=== PATIENT | female | born 1990 | race American Indian/Alaskan Native ===

== ENCOUNTER 2018-08-18 10:21 | Emergency (ER) | payer MEDICAID ==
[2018-08-18 10:30] VITALS: BP 117/78
[2018-08-18] MEDS ORDERED: TYLENOL PO ONE (11:32)
[2018-08-18] MEDS ORDERED: TYLENOL ONE (11:33)
== END 2018-08-18 13:48 | disposition left against medical advice (07) ==
LOC: ED 10:21
DX: M54.89 Other dorsalgia (principal); Z53.21 Procedure and treatment not carried out due to patient leaving prior to being seen by health care provider

== ENCOUNTER 2018-09-29 10:18 | Emergency (ER) | payer MEDICAID ==
[2018-09-27 11:57] LABS: Basophils % (Auto) 0.5 % (0.0-1.8); Eosinophils # (Auto) 0.1 K/mm3 (0.0-0.4); Eosinophils % (Auto) 1.7 % (0.0-4.3); Hematocrit 35.7 % (30.3-42.9); Hemoglobin 12.3 gm/dl (10.1-14.3); Lymphocytes # (Auto) 1.8 K/mm3 (1.2-5.4); Lymphocytes % (Auto) 26.8 % (13.4-35.0); Mean Corpuscular HGB Conc 35 % (30-34); Mean Corpuscular Volume 95 fl (79-97); Monocytes # (Auto) 0.4 K/mm3 (0.0-0.8); Monocytes % (Auto) 5.8 % (0.0-7.3); Platelet Count 241 K/mm3 (140-440); Red Blood Count 3.74 M/mm3 (3.65-5.03); Red Cell Distribution Width 13.6 % (13.2-15.2)
--- NOTE | 2018-09-27 12:14 | Anesthesia Consultation ---
Anesthesia Consult and Med Hx Date of service: 09/29/18 - Airway Anesthetic Teeth Evaluation: Good ROM Head & Neck: Adequate Mental/Hyoid Distance: Adequate Mallampati Class: Class II Intubation Access Assessment: Good - Pre-Operative Health Status ASA Pre-Surgery Classification: ASA2 Proposed Anesthetic Plan: General Nerve Block: TAP - Pulmonary Hx Smoking: Yes (STARTED AGE 16; 1/2 PPD) Hx Asthma: No COPD: No Hx Pneumonia: No - Central Nervous System Hx Neuromuscular Disorder: Yes Hx Seizures: Yes (LAST ONE 04/2018; STOPPED DEPAKOTE WHEN INVEGA STARTED 09/21/18) Hx Psychiatric Problems: Yes (Bipolar, anxiety, depression, schizophrenia) - Endocrine Hx End Stage Renal Disease: No - Hematic Hx Anemia: Yes Hx Sickle Cell Disease: Yes (RUNS IN THE FAMILY; PT UNSURE IF SHE HAS IT) - Other Systems Hx Alcohol Use: No Hx Substance Use: Yes (MARIJUANA) Hx Cancer: No - Additional Comments Anesthesia Medical History Comments: NO BLOOD; PT REFUSES
--- NOTE | 2018-09-29 08:26 | History and Physical Report ---
History of Present Illness Date of examination: 09/29/18 Date of admission: 09/29/2018 Chief complaint: chronic pelvic pain History of present illness: 27-year-old 003 with a history of worsening chronic pelvic pain. The patient has a known history of endometriosis and underwent a laparoscopy and right salpingo-oophorectomy in the past for her complaints. The patient has continued to have worsening of her symptoms. She has attempted medical management without any improvement in her pain. The patient is aware of the risk and benefits of the surgery and has elected to undergo a hysterectomy with removal of her left tube and ovary. Past History Past Medical History: other (endometriosis; bipolar disorder; seizure disorder) Past Surgical History: other (laparoscopy, right salpingo-oophorectomy) Social history: single, smoking - Obstetrical History : 3 Para: 3 Hx # Term Pregnancies: 3 Number of Pregnancies: 0 Spontaneous Abortions: 0 Induced : 0 Number of Living Children: 3 Medications and Allergies Allergies Allergy/AdvReac Type Severity Reaction Status Date / Time ceftriaxone sodium Allergy Anaphylaxis Verified 09/23/18 19:01 [From Rocephin] NSAIDS (Non-Steroidal Allergy Hives Verified 09/23/18 19:01 Anti-Inflamma Home Medications Medication Instructions Recorded Confirmed Last Taken Type Promethazine [Phenergan SUPPOS] 25 mg [place] Q6H #30 supp.rect 05/11/14 09/23/18 05/24/14 09:00 Rx 25 mg Paliperidone Palmitate [Invega 156 mg IM QMONTH 09/23/18 09/23/18 Unknown History Sustenna] oxyCODONE /ACETAMINOPHEN [Percocet 1 tab PO Q6HR PRN 09/23/18 09/23/18 Unknown History 5/325] Active Meds: Active Medications Fentanyl (Sublimaze) 100 mcg IV ONCE NR Stop: 09/29/18 16:00 Lactated Ringer's (Lactated Ringers) 1,000 mls @ 100 mls/hr IV DIRECT USHA Midazolam HCl (Versed) 2 mg IV PREOP NR Stop: 09/29/18 23:59 Scopolamine (Transderm-Scop) 1 each TD PREOP NR Stop: 09/29/18 20:00 Review of Systems Constitutional: weight loss Genitourinary: pelvic pain - Vital Signs Vital signs: Vital Signs Temp Pulse Resp BP Pulse Ox 97.1 F L 97 H 18 106/59 100 09/27/18 11:38 09/27/18 11:38 09/27/18 11:38 09/27/18 11:38 09/27/18 11:38 Temp Pulse Resp BP Pulse Ox 97.1 F L 97 H 18 106/59 100 09/27/18 11:38 09/27/18 11:38 09/27/18 11:38 09/27/18 11:38 09/27/18 11:38 - Physical Exam Breasts: Positive: deferred Cardiovascular: Regular rate Lungs: Positive: Clear to auscultation Abdomen: Positive: normal appearance Results Result Diagrams: 09/27/18 Unknown All other labs normal. Assessment and Plan - Patient Problems (1) Endometriosis Current Visit: Yes Status: Acute Plan to address problem: Proceed with robotic hysterectomy and left salpingo-oophorectomy (2) Chronic pelvic pain in female Current Visit: Yes Status: Acute
[~2018-09-29 10:18] MED LIST: CLEOCIN 900 MG/50 mL 900 MG/50 ML BAG IV NR; GENTAMICIN 80 MG in NACL 0.9% 100 ML IV ONE; GENTAMICIN/NS 80 MG/100 ML 100 ML IV NR; LACTATED RINGERS 1,000 ML IV SCH; SUBLIMAZE IV NR; TRANSDERM-SCOP TD NR; VERSED IV NR
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
[2018-09-29 11:16] VITALS: BP 105/64
== END 2018-09-29 11:28 | disposition home or self-care (01) ==
LOC: ED 10:18 → EEVIPCON 10:18 → ED 10:18 → EDSTATUS 12:30
DX: F41.9 Anxiety disorder, unspecified (principal); F43.9 Reaction to severe stress, unspecified; F20.9 Schizophrenia, unspecified; F17.200 Nicotine dependence, unspecified, uncomplicated; D57.80 Other sickle-cell disorders without crisis; Z87.442 Personal history of urinary calculi; Z79.899 Other long term (current) drug therapy; Z90.710 Acquired absence of both cervix and uterus; Z88.6 Allergy status to analgesic agent; Z88.1 Allergy status to other antibiotic agents
CPT/HCPCS: 36415; 84703; 85025; 86850; 86900; 86901; 99284; J1580; J7120; J2250; J3010

== ENCOUNTER 2018-10-06 05:48 | Observation (INO) | payer MEDICAID ==
[2018-10-06] MEDS ORDERED: NACL BACTERIOSTATIC INFILTRATI ONE (06:34)
[2018-10-06] MEDS ORDERED: LACTATED RINGERS 1,000 ML IV SCH (07:10)
[2018-10-06] MEDS ORDERED: LACTATED RINGERS 1,000 ML ONE ×2 (07:10→10:17)
[2018-10-06] MEDS ORDERED: VERSED ONE (07:13)
[2018-10-06] MEDS ORDERED: XYLOCAINE 1% 20 mL ONE (07:14)
[2018-10-06] MEDS ORDERED: SUBLIMAZE ONE (07:14)
[2018-10-06] MEDS ORDERED: ANCEF/STERILE WATER 2 GM/20 ML IV NR ×2 (07:15→10:00)
[2018-10-06] MEDS ORDERED: MARCAINE-EPI 0.5%-1:200,000 INFILTRATI ONE (07:15)
[2018-10-06] MEDS ORDERED: MARCAINE 0.5% INFILTRATI ONE (07:17)
[2018-10-06] MEDS ORDERED: NEOSPORIN GU IR ONE ×2 (07:17→10:00)
[2018-10-06] MEDS ORDERED: ZOFRAN IV PRN (07:35)
--- NOTE | 2018-10-06 07:35 | Anesthesia Day of Surgery ---
Anesthesia Day of Surgery - Day of Surgery Patient Examined: Yes Patient H&P Reviewed: Yes Patient is NPO: Yes
--- NOTE | 2018-10-06 07:35 | Anesthesia Consultation ---
Anesthesia Consult and Med Hx Date of service: 10/06/18 - Airway Anesthetic Teeth Evaluation: Good ROM Head & Neck: Adequate Mental/Hyoid Distance: Adequate Mallampati Class: Class II Intubation Access Assessment: Good - Pulmonary Exam CTA: Yes - Cardiac Exam Cardiac Exam: RRR - Pre-Operative Health Status ASA Pre-Surgery Classification: ASA2 Proposed Anesthetic Plan: General Nerve Block: TAP Block - Pulmonary Hx Smoking: Yes (STARTED AGE 16; 1/2 PPD) Hx Asthma: No COPD: No Hx Pneumonia: No - Central Nervous System Hx Neuromuscular Disorder: Yes Hx Seizures: Yes (LAST ONE 04/2018; STOPPED DEPAKOTE WHEN INVEGA STARTED 09/21/18) Hx Psychiatric Problems: Yes - Endocrine Hx End Stage Renal Disease: No - Hematic Hx Sickle Cell Disease: Yes (RUNS IN THE FAMILY; PT UNSURE IF SHE HAS IT) - Other Systems Hx Alcohol Use: No Hx Substance Use: Yes (MARIJUANA) Hx Cancer: No - Additional Comments Anesthesia Medical History Comments: Pt now on anti seizure medication siince last visit , patient calm and not agitated
[2018-10-06] MEDS ORDERED: DILAUDID ONE ×2 (07:37→11:09)
[2018-10-06] MEDS ORDERED: ZEMURON IV ONE (07:37)
[2018-10-06] MEDS ORDERED: DIPRIVAN 10 MG/ML IV ONE (07:37)
[2018-10-06] MEDS ORDERED: XYLOCAINE MPF 2% ONE (07:38)
[2018-10-06] MEDS ORDERED: NACL 0.9% IR ONE ×2 (10:00)
[2018-10-06] MEDS ORDERED: ZOFRAN ONE (10:04)
[2018-10-06] MEDS ORDERED: ROBINUL ONE (10:05)
[2018-10-06] MEDS ORDERED: BLOXIVERZ ONE (10:05)
[2018-10-06] MEDS ORDERED: NARCAN 0.4 MG/1 ML IV PRN (10:17)
--- NOTE | 2018-10-06 10:17 | Operative Report ---
Operative Report Operative Report: Date of surgery: 10/06/2018 Preoperative diagnoses: Chronic pelvic pain Postoperative diagnoses: Same as above Procedure: Robotic hysterectomy and left salpingo-oophorectomy Surgeon: Kelsie Lemos M.D. Sagger Filler: Ksenia Milner M.D. Anesthesia: Gen. endotracheal anesthesia Estimated blood loss: 50 mL Pathology: Uterus, cervix, left tube and ovary Indication: 27-year-old with a history of worsening chronic debilitating pelvic pain. The patient has a history of a prior right salpingo- oophorectomy for ovarian cyst. The patient is failed medical management and elected to undergo definitive surgical management. Procedure: The patient was taken to the operating room and given general endotracheal anesthesia without complication. She is prepped and draped in a normal sterile fashion. A bivalve speculum was placed in the patient's vagina and a single- tooth tenaculum placed on the anterior lip of the cervix. The uterus was sounded with the uterine sound. A [email or web address] uterine manipulator was placed in the bivalve speculum was then removed. Attention was then turned to the patient's abdomen where a 12 millimeter supra umbilical skin incision was then made. A Veress needle was placed and peritoneal entry was verified water-filled syringe. Insufflation of the peritoneal cavity was performed with CO2 gas. The 12 mm trocar was then placed under direct visualization. An additional 8 mm trocar was placed on the patient's left and right lateral side just opposite of the supraumbilical trocar. An additional 5 mm right lateral trocar was then placed as the accessory port. The Yosi Mallory device was used to close the fascia of the 12 mm incision. The patient was then placed in steep Trendelenburg. The da Lizz robot was then engaged. A fenestrated forcep was placed in arm 2 and a vessel sealer was placed in arm 1. The surgeon then transferred to the surgical console. General survey of the abdomen and pelvis revealed a surgically absent right ovary and 2. No evidence of endometriosis could be identified. No evidence of adhesions. The uterus was normal in size. The infundibulopelvic ligament was then isolated on the right. The vessel sealer was used to coagulate the ligament which was then transected. The round ligament was then coagulated and transected also. The vesicouterine peritoneum was then entered from the patient's right side. The uterine vessels were then coagulated with the vessel sealer. The vessels were then transected . Attention was then turned to the patient's left side where the infundibulopelvic ligament and mesosalpinx were again isolated coagulated and transected. The vesical peritoneum was then entered from the left and joined in the midline. Peritoneum was reflected off of the lower uterine segment. Uterine vessels were then coagulated and then transected. The blood supply to the uterus was adequately contained, a posterior colpotomy was made. The V care ring was visualized. Posterior colpotomy was created with the monopolar scissors. The incision was continued circumferentially until anterior colpotomy was made. The cervix and uterus were amputated from the vaginal cuff. The uterus was then removed along with the tube and ovary through the vagina and a warm laparotomy sponge was pl aced and maintain the pneumoperitoneum. The vaginal cuff was then closed in a running fashion with V lock suture. Irrigation of the pelvis was performed. Hemoblast was applied to the incision. The skin was then reapproximated with 4-0 Monocryl. The tissue was sent to pathology which included the cervix, uterus, tube and ovary. The patient was then successfully extubated. She was then taken to the recovery room in stable condition. All sponge laps and needle counts were correct x2.
[2018-10-06] MEDS ORDERED: PERCOCET 5/325 PO PRN (10:18)
[2018-10-06] MEDS ORDERED: TYLENOL PO PRN (10:18)
[2018-10-06] MEDS ORDERED: AMBIEN PO PRN (10:18)
[2018-10-06] MEDS: DILAUDID IV PRN ×3 (10:35→13:10)
[2018-10-06] MEDS ORDERED: MORPHINE PCA 30MG/30ML IV SCH (11:00)
[2018-10-06] MEDS ORDERED: ANCEF/STERILE WATER 2 GM/20 ML IV ONE (12:00)
[2018-10-06] MEDS: MORPHINE IV PRN ×3 (15:13→21:13)
[2018-10-06] MEDS: ZOFRAN IV PRN (15:13)
--- NOTE | 2018-10-06 16:30 | Post Anesthesia Evaluation ---
- Post Anesthesia Evaluation Patient Participated: Yes Airway Patent: Yes Stable Respiratory Function: Yes Nausea/Vomiting: No Temp > 96.8F: Yes Pain Manageable: Yes Adequeate Hydration: Yes Anesthesia Complications: No Block Receding Appropriately: Yes Patient on Ventilator: No
[2018-10-06] MEDS: D5LR 1,000 ML IV SCH (18:29)
[2018-10-07] MEDS: MORPHINE IV PRN ×4 (01:47→10:24)
[2018-10-07] MEDS: ZOFRAN IV PRN (01:48)
[2018-10-07] MEDS: D5LR 1,000 ML IV SCH (01:53)
[2018-10-07 06:16] LABS: Hematocrit 30.4 % (30.3-42.9); Hemoglobin 10.4 gm/dl (10.1-14.3)
--- NOTE | 2018-10-07 08:12 | Progress Note ---
Assessment and Plan - Patient Problems (1) Chronic pelvic pain in female Current Visit: No Status: Acute Plan to address problem: patient doing well advance diet discharge home today Subjective - Subjective Date of service: 10/07/18 Interval history: Patient is ambulating in hallway. She reports being able to void despite removing her own su yesterday. She has tolerated a clear diet. Patient reports: appetite normal, voiding normally, pain well controlled Objective - Vital Signs Latest vital signs: Vital Signs Temp Pulse Resp BP BP Pulse Ox 10/07/18 02:00 98.7 F 101 H 16 108/68 100 10/06/18 21:30 99.1 F 87 18 105/65 97 10/06/18 16:15 99.0 F 106 H 20 114/83 100 10/06/18 11:52 97.8 F 122 H 28 H 143/78 99 10/06/18 11:38 16 10/06/18 11:15 97.7 F 106 H 18 107/74 100 10/06/18 11:08 17 10/06/18 11:05 16 10/06/18 11:00 100 H 17 117/76 100 10/06/18 10:45 101 H 21 120/78 100 10/06/18 10:40 107 H 21 121/85 100 10/06/18 10:35 112 H 19 114/76 100 10/06/18 10:30 97.3 F L 115 H 14 123/59 100 Intake and Output 10/06/18 10/07/18 10/07/18 22:59 06:59 14:59 Intake Total 1165 Balance 1165 Intake: IV 925 D5lr 1,000 ml @ 125 mls/ 925 hr IV DIRECT USHA Rx#: [id number] Intake, Free Water 240 Other: Voiding Method Toilet # Voids Void 2 - Exam Abdomen: Present: normal appearance, soft
--- NOTE | 2018-10-07 08:15 | Discharge Summary ---
Providers - Providers Date of Admission: 10/06/18 10:18 Date of discharge: 10/07/18 Attending physician: CHRISTINE GLORIA [facility] Reason for admission: other (Chronic pelvic pain) Procedure: other (robotic hysterectomy and LSO) Discharge diagnosis: other (Chronic pelvic pain) Hospital course: Patient was admitted the day of surgery and underwent a robotic hysterectomy and LSO. Patient became slightly agitated after surgery and removed her own su. Remainder of the hospitalization was uneventful. Condition at discharge: Good Disposition: DC-01 TO HOME OR SELFCARE - Discharge Diagnoses (1) Chronic pelvic pain in female Status: Acute Plan - Discharge Medications Prescriptions: oxyCODONE /ACETAMINOPHEN [Percocet 5/325] 1 tab PO Q6HR PRN #30 tablet PRN Reason: Pain - Provider Discharge Summary Activity: no sex for 6 weeks, no heavy lifting 4 weeks, no strenuous exercise Diet: routine Instructions: routine Additional instructions: [] Smoking cessation referral if applicable(refer to patient education folder for contact #) [] Refer to [facility] Booklet Call your doctor immediately for: * Fever > 100.5 * Heavy vaginal bleeding ( >1 pad per hour) * Severe persistent headache * Shortness of breath * Reddened, hot, painful area to leg or breast * Drainage or odor from incision. * Keep incision clean and dry at all times and follow doctor's instructions regarding bathing/showering schedule followup in 4 weeks No heavy lifting Pelvic rest for 6 weeks - Follow up plan
[2018-10-07 13:10] VITALS: BP 113/76
== END 2018-10-07 12:49 | disposition home or self-care (01) ==
LOC: OR 05:48 → OB 10:18
PROVIDERS: ADMIT Obstetrics & Gynecology; ATTEND Obstetrics & Gynecology
DX: R10.2 Pelvic and perineal pain (principal); G89.29 Other chronic pain; N80.9 Endometriosis, unspecified; F31.9 Bipolar disorder, unspecified; G40.909 Epilepsy, unspecified, not intractable, without status epilepticus; F17.200 Nicotine dependence, unspecified, uncomplicated; Z79.899 Other long term (current) drug therapy
CPT/HCPCS: 36415; 58552; 64450; 81025; 85014; 85018; 86850; 86900; 86901; 88307; 96374; 96375; 96376; A4217; G0378; J0690; J1170; J2250; J2270; J2405; J2704; J2710; J3010; J7120; J7121; S2900

== ENCOUNTER 2020-02-24 15:47 | Emergency (ER) | payer MEDICAID ==
[2020-02-24 16:23] VITALS: BP 99/70
--- NOTE | 2020-02-24 16:52 | XRay Report ---
RIGHT HAND 2 VIEW(S) INDICATION / CLINICAL INFORMATION: Hand Trauma . Hand swelling and bruising. COMPARISON: None available. FINDINGS: BONES / JOINT(S): No acute fracture or subluxation. No significant arthritis. SOFT TISSUES: No significant abnormality. ADDITIONAL FINDINGS: None. Signer Name: Alexis Olguin MD Signed: 02/24/2020 4:48 PM Workstation Name: [email or web address]
[2020-02-24] MEDS ORDERED: ACETAMINOPHEN W/CODEINE 300-30 MG TAB PO ONE (17:16)
--- NOTE | 2020-02-24 17:25 | Emergency Department Report ---
ED Upper Extremity Inj HPI - General Chief Complaint: Extremity Injury, Upper Stated Complaint: RT WRIST PAINS Time Seen by Provider: 02/24/20 17:12 Source: patient Mode of arrival: Ambulatory Limitations: No Limitations - History of Present Illness Initial Comments: The patient was evaluated in the emergency department for symptoms described in the history of present illness. He/she was evaluated in the context of the global COVID-19 pandemic, which necessitated consideration that the patient might be at risk for infection with the virus that causes COVID-19. Institutional protocols and algorithms that pertain to the evaluation of patients at risk for COVID-19 are in a state of rapid change based on information released by regulatory bodies including the CDC and federal and state organizations. These policies and algorithms were followed during the patient's care in the emergency department. Please note that these policies, procedures and recommendations changed on a rapid basis. 29-year-old -Citizen Of [place] female presents to the emergency room for right wrist pain. Patient states that she leaned back on her right wrist and it gave out and she has been having pain and difficulty with moving since yesterday. Patient states that she took Tylenol but does not really help. Patient has a history of chronic pain. MD Complaint: Injury to:: right Onset/Timin -: days(s) Other Extremity Injury: Wrist: Right Other Injuries: none Handedness: right Severity scale (0 -10): 7 Improves With: none Worsens With: movement of extremity Associated Symptoms: denies other symptoms - Related Data Home Medications Medication Instructions Recorded Confirmed Last Taken Paliperidone Palmitate [Invega 156 mg IM QMONTH 09/23/18 10/06/18 09/21/18 09:00 Sustenna] oxyCODONE /ACETAMINOPHEN [Percocet 1 tab PO Q6HR PRN 09/23/18 10/06/18 10/05/18 17:00 5/325] Previous Rx's Medication Instructions Recorded Last Taken Type Promethazine [Phenergan SUPPOS] 25 mg AL Q6H #30 supp.rect 05/11/14 05/24/14 09:00 Rx 25 mg oxyCODONE /ACETAMINOPHEN [Percocet 1 tab PO Q6HR PRN #30 tablet 10/07/18 Unknown Rx 5/325] Acetaminophen/Codeine [Tylenol 1 tab PO Q6H PRN #12 tablet 02/24/20 Unknown Rx /Codeine # 3 tab] Allergies Allergy/AdvReac Type Severity Reaction Status Date / Time ceftriaxone sodium Allergy Anaphylaxis Verified 10/04/18 10:53 [From Rocephin] NSAIDS (Non-Steroidal Allergy Hives Verified 10/04/18 10:53 Anti-Inflamma ED Review of Systems ROS: Stated complaint: RT WRIST PAINS Other details as noted in HPI Comment: All other systems reviewed and negative ED Past Medical Hx - Past Medical History Previous Medical History?: Yes Hx Congestive Heart Failure: No Hx Diabetes: No Hx Sickle Cell Disease: Yes (RUNS IN THE FAMILY; PT UNSURE IF SHE HAS IT) Hx Seizures: Yes (LAST ONE 04/2018; STOPPED DEPAKOTE WHEN INVEGA STARTED 09/21/18) Hx Kidney Stones: Yes (PASSED; NO INTERVENTION) Hx Psychiatric Treatment: Yes (Bipolar, SCHIZOPHRENIA, DEPRESSION, ANXIETY) Hx Asthma: No Hx COPD: No Hx HIV: No - Surgical History Past Surgical History?: Yes Additional Surgical History: Hysterectomy - Social History Smoking Status: Current Every Day Smoker Substance Use Type: None - Medications Home Medications: Home Medications Medication Instructions Recorded Confirmed Last Taken Type Promethazine [Phenergan SUPPOS] 25 mg AL Q6H #30 supp.rect 05/11/14 10/04/18 05/24/14 09:00 Rx 25 mg Paliperidone Palmitate [Invega 156 mg IM QMONTH 09/23/18 10/06/18 09/21/18 09:00 History Sustenna] oxyCODONE /ACETAMINOPHEN [Percocet 1 tab PO Q6HR PRN 09/23/18 10/06/18 10/05/18 17:00 History 5/325] oxyCODONE /ACETAMINOPHEN [Percocet 1 tab PO Q6HR PRN #30 tablet 10/07/18 Unknown Rx 5/325] Acetaminophen/Codeine [Tylenol 1 tab PO Q6H PRN #12 tablet 02/24/20 Unknown Rx /Codeine # 3 tab] ED Physical Exam - General Limitations: No Limitations General appearance: alert, in no apparent distress - Head Head exam: Present: atraumatic, normocephalic - Eye Eye exam: Present: normal appearance - ENT ENT exam: Present: mucous membranes moist - Neck Neck exam: Present: normal inspection, full ROM - Respiratory Respiratory exam: Absent: accessory muscle use - Expanded Upper Extremity Exam Right Shoulder Exam: Present: normal inspection, full ROM Upper Arm exam: Present: normal inspection, full ROM Elbow exam: Present: normal inspection, full ROM Forearm Wrist exam: Present: pain with axial thumb loading. Absent: tenderness over anatomical snuff box Hand Wrist exam: Present: tenderness. Absent: swelling, ecchymosis, deformity Neurosensory exam: Present: 2-point discrimination Vascular: Present: normal capillary refill ED Course Vital Signs 02/24/20 16:21 Temperature 98.8 F Pulse Rate 65 Respiratory 18 Rate Blood Pressure 99/70 O2 Sat by Pulse 96 Oximetry ED Medical Decision Making - Medical Decision Making 29-year-old -Citizen Of [place] female presents to the emergency room for right wrist pain. Patient states that she leaned back on her right wrist and it gave out and she has been having pain and difficulty with moving since yesterday. Patient states that she took Tylenol but does not really help. Patient has a history of chronic pain. X-rays negative for any acute abnormalities. I did discuss with patient it could be a ligament injury and that she needs to follow-up with an orthopedic provider. Patient is given Tylenol 3 for pain and will be discharged on Tylenol as well as a wrist brace. Critical care attestation.: If time is entered above; I have spent that time in minutes in the direct care of this critically ill patient, excluding procedure time. ED Disposition Clinical Impression: Sprain of right wrist Disposition: DC-01 TO HOME OR SELFCARE Is pt being admited?: No Does the pt Need Aspirin: No Condition: Stable Instructions: Wrist Sprain, Adult Additional Instructions: Take pain medication as needed wear brace for your wrist and follow-up with orthopedic provider. Prescriptions: Acetaminophen/Codeine [Tylenol /Codeine # 3 tab] 1 tab PO Q6H PRN #12 tablet PRN Reason: Pain , Severe (7-10) Referrals: KOBE SORIA MD [Staff Physician] - 3-5 Days
== END 2020-02-24 17:35 | disposition home or self-care (01) ==
LOC: ED 15:47
DX: S63.501A Unspecified sprain of right wrist, initial encounter (principal); G40.909 Epilepsy, unspecified, not intractable, without status epilepticus; F25.0 Schizoaffective disorder, bipolar type; F17.200 Nicotine dependence, unspecified, uncomplicated; Z90.710 Acquired absence of both cervix and uterus; Z88.8 Allergy status to other drugs, medicaments and biological substances; X50.9XXA Other and unspecified overexertion or strenuous movements or postures, initial encounter; Y93.89 Activity, other specified; Y92.89 Other specified places as the place of occurrence of the external cause; Y99.8 Other external cause status
CPT/HCPCS: 99283